=== PATIENT | female | born 1990 | race Caucasian/White ===

== ENCOUNTER 2021-12-14 18:22 | Emergency (ER) | payer BC, MEDICAID, SELFPAY ==
[2021-12-14 18:40] VITALS: BP 131/86; PULSE 100; RESP 18; TEMP 37.1; O2SAT 99
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
[2021-12-14] MEDS: CELEcoxib 200 mg Capsule 400 MG PO (21:03)
[2021-12-14 21:58] VITALS: BP 127/84; PULSE 91; RESP 18; TEMP 37.1; O2SAT 99
== END 2021-12-14 21:15 | disposition home or self-care (01) ==
PROVIDERS: Emergency Provider Nurse Practitioner Family
DX: Z04.1 Encounter for examination and observation following transport accident (principal); V40.5XXA Car driver injured in collision with pedestrian or animal in traffic accident, initial encounter
CPT/HCPCS: 72072; 72100; 99283